=== PATIENT | female | born 2000 | race Caucasian/White ===

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

== ENCOUNTER → 2022-04-10 | Outpatient (CLI) | payer OTHER ==
--- NOTE | 2022-04-10 12:27 | XR ---
EXAMINATION TYPE: XR abdomen acute w cxr DATE OF EXAM: 04/10/2022 12:15 PM INDICATION: Patient age:Female; 21 years old; Reason for study: R19.7 diarrhea R11.10 vomiting R10.11 ruq pain; COMPARISON: TECHNIQUE: Two radiographic views of the abdomen (upright and supine) and a frontal chest radiograph were obtained. FINDINGS CHEST: Lungs/Pleura: The lungs are clear. There is no evidence of pleural effusion, focal consolidation or p neumothorax. Mediastinum: Unremarkable. Vasculature: Normal. Heart: Normal in size. Musculoskeletal: The osseous structures are intact. Other findings: No significant. FINDINGS ABDOMEN: Bowel gas pattern: Moderate amount of stool burden throughout the colon. Normal without dilated loops of small or large bowel. Fecal material and gas are demonstrated throughout the colon and rectum. Abnormal calcifications: None. Musculoskeletal: Normal. Other: None. IMPRESSION: 1. Moderate stool burden throughout the colon. 2. No radiographic evidence for acute abdominal process. 3. No acute cardiopulmonary process
--- NOTE | 2022-04-10 14:45 | US ---
EXAMINATION TYPE: US abdomen complete DATE OF EXAM: 04/10/2022 COMPARISON: NONE CLINICAL HISTORY: R19.7 diarrhea R11.10 vomiting R10.11 ruq pain. Pt states RUQ pain after recent ill ness with N, V, & D TECHNIQUE: Multiple sonographic images of the abdomen are obtained. FINDINGS: EXAM MEASUREMENTS: Liver Length: 14.4 cm Gallbladder Wall: 0.2 cm CBD: 0.4 cm Spleen: 13.2 cm Right Kidney: 10.8 x 4.3 x 5.0 cm Left Kidney: 10.6 x 4.7 x 4.5 cm DIRECTOR [employer] NOTES: Pt VERY GASSY, difficult to visualize abdominal organs well Pancreas: Obscured by bowel gas Liver: Visualized portions appear wnl Gallbladder: wnl, could only be visualized LLD position due to overlying bowel gas Evidence for sonographic Rosario's sign: No CBD: wnl Spleen: Upper limits of normal for size Right Kidney: Visualized portions appeared wnl Left Kidney: Visualized portions appeared wnl Upper IVC: wnl Abd Aorta: wnl The liver is homogenous. The intrahepatic portion of the IVC and proximal abdominal aorta are within normal limits. There is no evidence of cholelithiasis. Common bile duct is unremarkable. The visu alized portions of the pancreas are homogenous. The spleen is unremarkable. Kidneys are symmetric a nd free of hydronephrosis. No renal lesions are seen. IMPRESSION: Somewhat limited exam without evidence for acute process.
== END | disposition home or self-care (01) ==
LOC: RADUSWWP 11:35
PROVIDERS: ATTEND Family Medicine
DX: R19.5 Other fecal abnormalities (principal); R19.7 Diarrhea, unspecified; R11.10 Vomiting, unspecified; R10.11 Right upper quadrant pain
CPT/HCPCS: 74022; 76700